=== PATIENT | male | born 1945 | race Caucasian/White ===

== ENCOUNTER 2017-07-09 20:23 | Inpatient (IN) ==
[2017-07-09] MEDS ORDERED: ALBUTEROL/IPRATROPIUM 2.5mg-0.5mg/3ml NEB AEROSOL ONE (20:45)
--- NOTE | 2017-07-09 20:51 | Emergency Department Report ---
SOB HPI - General Chief Complaint: Shortness of Breath/Dyspnea Stated Complaint: blood in urine,difficulty breathing Source: patient, family Mode of arrival: EMS Limitations: no limitations - History of Present Illness PT presents with progressive weakness over the last 2 days. Pt had EMS at his home earlier today as he was not able to get off of the toilet even with family assistance. reports he has had a low grade fever. They have both had dry non productive coughs for about 2 weeks.. EMS reports pt had room air SpO2 in the upper 80s. Pt does not use home O2 but has in the past when he was diagnosed with pneumonia. He denies any respiratory history. Pt denies chest pain, nausea, vomiting, diarrhea, or headache MD Complaint: shortness of breath, cough Severity: moderate Consistency/Duration: constant Known history of: other (agent orange exposure) Associated symptoms: denies other symptoms - Related Data Home Medications Medication Instructions Recorded Confirmed Aspirin [Aspirin EC] 81 mg PO HS #0 01/26/09 07/09/17 Calcium Carbonate 1 tab PO BID #0 01/26/09 07/09/17 Multivitamin [One Daily 1 each PO BID #0 01/26/09 07/09/17 Multivitamin] Acetaminophen [Tylenol] 2 tab PO TID 07/09/17 07/09/17 Albuterol Sulfate [Proair Hfa] 2 puff INH TID PRN 07/09/17 07/09/17 Finasteride [Proscar] 5 mg PO DAILY 07/09/17 07/09/17 Gabapentin [Neurontin] 600 mg PO HS 07/09/17 07/09/17 Metoprolol Tartrate 100 mg PO BID 07/09/17 07/09/17 Omeprazole [Prilosec] 1 cap PO ACBID 07/09/17 07/09/17 Potassium 1 tab PO DAILY 07/09/17 07/09/17 Simvastatin [Zocor] 40 mg PO HS 07/09/17 07/09/17 Triamterene/Hydrochlorothiazid 1 cap PO DAILY 07/09/17 07/09/17 [Triamterene-Hctz 37.5-25 mg Cp] Warfarin Sodium [Coumadin] 5 mg PO QMWF 07/09/17 07/09/17 Warfarin [Coumadin] 2.5 tab PO QTUTHSASU 07/09/17 07/09/17 Allergies Allergy/AdvReac Type Severity Reaction Status Date / Time clindamycin Allergy Severe SWELLING Verified 10/27/14 12:33 sulfamethoxazole Allergy Severe SWELLING Verified 10/27/14 12:33 trimethoprim Allergy Severe SWELLING Verified 10/27/14 12:33 Review of Systems All systems: reviewed and negative except as stated Constitutional: Reports: as per HPI Cardiovascular: Reports: as per HPI Respiratory: Reports: as per HPI Gastrointestinal: Reports: as per HPI Musculoskeletal: Reports: as per HPI Neurological: Reports: as per HPI [facility] Patient Stated Medical History Hypertension Yes Other Cardiology Yes: agent orange exposure -- 30% "disability of heart" Diabetes Mellitus Type 2 Yes Other GI Yes: hernia Osteoarthritis Yes Physical Exam - Limitations Limitations: no limitations - General General appearance: alert, in distress - Normal Exams: Head:: Normocephalic without trauma Neck:: Full range of motion, without adenopathy Cardiovascular:: Regular rate and rhythm (tachy), Pulses 2+ all extremities, capillary refill, <2 seconds all extremities Abdomen:: Bowel sounds positive, soft, non-tender, non-distended Musculoskeletal:: No tenderness, or deformity noted, good range of motion, all extremities Integumentary:: No rashes Neurological:: Patient is alert, and oriented, cranial nerves, motor/sensory/ cerebellar, exams w/o gross deficits, to observation Psychiatric:: Patient exhibits, appropriate attention, emotion and affect - Respiratory Respiratory exam: Present: respiratory distress, accessory muscle use - Expanded Respiratory Exam Location: Left: wheezes, rhonchi, Right: wheezes, rhonchi, Upper: wheezes, rhonchi, Lower: wheezes, rhonchi Course Vital Signs Temperature 99 F 07/09/17 20:26 Pulse Rate 119 H 07/09/17 20:26 Respiratory Rate 28 H 07/09/17 20:26 Blood Pressure 111/65 07/09/17 20:26 Pulse Oximetry 89 L 07/09/17 20:26 Temperature 100.6 F H 07/09/17 21:52 Pulse Rate 109 H 07/09/17 22:30 Respiratory Rate 24 07/09/17 22:30 Blood Pressure 128/56 07/09/17 22:30 Pulse Oximetry 95 07/09/17 22:30 Shortness of Breath/Dyspnea - MDM Narrative Medical decision making narrative: Lab, Xray, and EKG results reviewed. Cultures obtained and antibiotics initiated. Pt and family informed of need for admit. [place] When discussing need to call for approval of admission to [facility] states [place] for [place] and adamantly prefers admission to [facility] the [facility]. Pt presentation and findings discussed with Dr Weiner who agrees to admit. - Differential Diagnosis Likely: acute exacerbation of chronic obstructive airways disease, congestive heart failure, community acquired pneumonia, asthma with exacerbation - Lab Data Attestation: I reviewed the patient's lab results. Result diagrams: 07/09/17 21:17 07/09/17 21:17 Lab Results 07/09/17 07/09/17 07/09/17 Range/Units 21:01 21:17 21:17 WBC 17.8 H (4.5-11.0) T/MM3 RBC 5.09 (4.50-5.90) M/MM3 Hgb 16.1 (13.5-17.5) GM/DL Hct 49.9 (41-53) % MCV 98.0 (80-100) UM3 MCH 31.6 (26-34) UUG MCHC 32.3 (31-37) GM/DL RDW Std Deviation 55.4 H (36.9-50.2) FL Plt Count 175 (130-400) T/MM3 MPV 10.7 (9.4-12.4) UM3 Immature Gran % (Auto) Not performed Neut % (Auto) Not performed Lymph % (Auto) Not performed [place] % (Auto) Not performed Eos % (Auto) Not performed Baso % (Auto) Not performed Neut # (Auto) Not performed Lymph # (Auto) Not performed [place] # (Auto) Not performed Eos # (Auto) Not performed Baso # (Auto) Not performed Abs Immat Gran (auto) Not performed Neutrophils % (Manual) 57.0 (33-66) % Band Neutrophils % 29.0 H (0-6) % Lymphocytes % (Manual) 7.0 L (23-45) % Reactive Lymphs % 2.0 H (0-0) % Monocytes % (Manual) 4.0 (0-9.0) % Metamyelocytes % 1.0 H (0-0) % Neutrophils # (Manual) 10.1 H (1.8-7.7) T/MM3 Band Neutrophils # 5.2 T/MM3 Lymphocytes # (Manual) 1.2 (1-4.8) T/MM3 Abs React Lymphs (Man) 0.4 H (0-0) T/MM3 Monocytes # (Manual) 0.7 (0-0.8) T/MM3 Metamyelocytes # 0.2 T/MM3 Poikilocytosis 1+ Anisocytosis 1+ Tear Drop Cells 1+ RBC Morph Comment Abnormal Turbidity < 20 (0-20) Sodium 145 H (134-144) MEQ/L Potassium 4.0 (3.6-5) MEQ/L Chloride 103 (98-107) MEQ/L Carbon Dioxide 30 (22-30) MEQ/L Anion Gap 12 (5-15) meq/L BUN 36.0 H (9-20) MG/DL Creatinine 1.2 (0.8-1.5) mg/dL GFR Calculation 60 BUN/Creatinine Ratio 30 H (6-26) RATIO Glucose 137 H (75-110) MG/DL Calculated Osmolality 289 H (261-280) MOSM/KG Calcium 9.1 (8.4-10.2) MG/DL Total Bilirubin 1.20 (0.20-1.30) MG/DL Icterus Index < 2 (0-7) AST 63 H (17-59) U/L ALT 27 (1-50) U/L Alkaline Phosphatase 63 (38-126) U/L NT-Pro-B Natriuret Pep 714 H (0-175) pg/mL Total Protein 8.0 (6.3-8.2) g/dL Albumin 4.3 (3.5-5.0) g/dL Globulin 3.7 H (2.4-3.6) G/DL Albumin/Globulin Ratio 1.2 (1.1-2.2) RATIO Plasma Lactate (0.6-2.2) MMOL/L Procalcitonin 6.06 H* NG/ML Specimen Hemolysis 30 H (0-25) //18 Range/Units 22:09 WBC (4.5-11.0) T/MM3 RBC (4.50-5.90) M/MM3 Hgb (13.5-17.5) GM/DL Hct (41-53) % MCV (80-100) UM3 MCH (26-34) UUG MCHC (31-37) GM/DL RDW Std Deviation (36.9-50.2) FL Plt Count (130-400) T/MM3 MPV (9.4-12.4) UM3 Immature Gran % (Auto) Neut % (Auto) Lymph % (Auto) [place] % (Auto) Eos % (Auto) Baso % (Auto) Neut # (Auto) Lymph # (Auto) [place] # (Auto) Eos # (Auto) Baso # (Auto) Abs Immat Gran (auto) Neutrophils % (Manual) (33-66) % Band Neutrophils % (0-6) % Lymphocytes % (Manual) (23-45) % Reactive Lymphs % (0-0) % Monocytes % (Manual) (0-9.0) % Metamyelocytes % (0-0) % Neutrophils # (Manual) (1.8-7.7) T/MM3 Band Neutrophils # T/MM3 Lymphocytes # (Manual) (1-4.8) T/MM3 Abs React Lymphs (Man) (0-0) T/MM3 Monocytes # (Manual) (0-0.8) T/MM3 Metamyelocytes # T/MM3 Poikilocytosis Anisocytosis Tear Drop Cells RBC Morph Comment Turbidity (0-20) Sodium (134-144) MEQ/L Potassium (3.6-5) MEQ/L Chloride (98-107) MEQ/L Carbon Dioxide (22-30) MEQ/L Anion Gap (5-15) meq/L BUN (9-20) MG/DL Creatinine (0.8-1.5) mg/dL GFR Calculation BUN/Creatinine Ratio (6-26) RATIO Glucose (75-110) MG/DL Calculated Osmolality (261-280) MOSM/KG Calcium (8.4-10.2) MG/DL Total Bilirubin (0.20-1.30) MG/DL Icterus Index (0-7) AST (17-59) U/L ALT (1-50) U/L Alkaline Phosphatase (38-126) U/L NT-Pro-B Natriuret Pep (0-175) pg/mL Total Protein (6.3-8.2) g/dL Albumin (3.5-5.0) g/dL Globulin (2.4-3.6) G/DL Albumin/Globulin Ratio (1.1-2.2) RATIO Plasma Lactate 1.6 (0.6-2.2) MMOL/L Procalcitonin NG/ML Specimen Hemolysis (0-25) - Radiology Data Attestation: I reviewed the patient's radiology results. (Right infra hilar pneumonia per Dr Wells) - EKG Data EKG #1 EKG attestation: Yes: I reviewed and interpreted this EKG. EKG shows normal: sinus rhythm Rate: tachycardia Disposition Clinical Impression: Community acquired pneumonia Qualifiers: Laterality: right Lung location: middle lobe of lung Qualified Code(s): J18.1 - Lobar pneumonia, unspecified organism Disposition: 02 To [facility] Acute Care Condition: Improved Prescriptions: No Action Aspirin [Aspirin EC] 81 mg PO HS #0 Calcium Carbonate 1 tab PO BID #0 Multivitamin [One Daily Multivitamin] 1 each PO BID #0 Gabapentin [Neurontin] 600 mg PO HS Albuterol Sulfate [Proair Hfa] 2 puff INH TID PRN PRN Reason: Shortness Of Air/Wheezing Triamterene/Hydrochlorothiazid [Triamterene-Hctz 37.5-25 mg Cp] 1 cap PO DAILY Potassium 1 tab PO DAILY Acetaminophen [Tylenol] 2 tab PO TID Finasteride [Proscar] 5 mg PO DAILY Metoprolol Tartrate 100 mg PO BID Simvastatin [Zocor] 40 mg PO HS Warfarin Sodium [Coumadin] 5 mg PO QMWF Warfarin [Coumadin] 2.5 tab PO QTUTHSASU Omeprazole [Prilosec] 1 cap PO ACBID Referrals: Noel Harding MD [Primary Care Provider] - Time of Disposition: 23:25 - Seen By: midlevel
[2017-07-09] MEDS: SALINE FLUSH 10ml SYRINGE IVF PRN (21:15)
[2017-07-09] MEDS ORDERED: NS 1,000 ML IV ONE (21:57)
[2017-07-09] MEDS: ACETAMINOPHEN 500 MG TABLET PO PRN (22:04)
[2017-07-09] MEDS ORDERED: AZITHROMYCIN IV 500 MG in NS 250ml 250 ML IV ONE (22:08)
[2017-07-09] MEDS ORDERED: CEFTRIAXONE (ER USE ONLY) 1 GM in NS 100 ML IV ONE (22:08)
[2017-07-09] MEDS ORDERED: CEFTRIAXONE 2 GM INJECTION IV SCH (23:42)
[2017-07-10] MEDS: AZITHROMYCIN IV 500 MG in NS 250ml 250 ML IV SCH (00:31)
--- NOTE | 2017-07-10 00:42 | History & Physical Report ---
History of Present Illness Date: 07/10/17 Chief complaint: weakness HPI: This is a 71 y/o male who live at home with his and daughter. He has been coughing for the past 2 weeks and has had increased shortness of breath. Tonight the patient's brathing worsened and he had increased weakness. Initially EMS was asked to assist with getting the patient up (sig obesity). When they were called a second time he is found to be hypoxic with sats in the 80's and febrile 101. He is transported to the ED with CXR demonstrating right hilar infiltrate. He patient had over 20% bands on his differential. The patient has a history of HtN and a previous clot in his left leg. Currently inr is only 1.5. The patient will be admitted to treat CAP. Review of Systems Review of systems: no headache, mild congestion, cough that is constant and non productive. recent (tonight) fever, chills and sweats, no heart palpations, no abdomen pain , no change in bm, no urine sx, no new skin rashes, no focal motor weakness, just generalized weakness. 12 point ROS otherwise negative except for outlined above. Past Medical History Medical History Updates: hypertension, dysliipidemia, BPH, DM2, DVT lefft leg Surgical History: appendectomy, t and a Family History: No Significant Family History - Social History Smoking status: Former smoker Substance use type: does not use Alcohol intake frequency: former alcohol drinker Housing: house Household members: spouse Current occupational status: previously employed Current occupational exposures/hazards: No Does patient use chewing tobacco?: No Current residence: Apartment/Private Home Medications Home Medications Medication Instructions Recorded Confirmed Type Aspirin [Aspirin EC] 81 mg PO HS #0 01/26/09 07/09/17 History Calcium Carbonate 1 tab PO BID #0 01/26/09 07/09/17 History Multivitamin [One Daily 1 each PO BID #0 01/26/09 07/09/17 History Multivitamin] Acetaminophen [Tylenol] 2 tab PO TID 07/09/17 07/09/17 History Albuterol Sulfate [Proair Hfa] 2 puff INH TID PRN 07/09/17 07/09/17 History Finasteride [Proscar] 5 mg PO DAILY 07/09/17 07/09/17 History Gabapentin [Neurontin] 600 mg PO HS 07/09/17 07/09/17 History Metoprolol Tartrate 100 mg PO BID 07/09/17 07/09/17 History Omeprazole [Prilosec] 1 cap PO ACBID 07/09/17 07/09/17 History Potassium 1 tab PO DAILY 07/09/17 07/09/17 History Simvastatin [Zocor] 40 mg PO HS 07/09/17 07/09/17 History Triamterene/Hydrochlorothiazid 1 cap PO DAILY 07/09/17 07/09/17 History [Triamterene-Hctz 37.5-25 mg Cp] Warfarin Sodium [Coumadin] 5 mg PO QMWF 07/09/17 07/09/17 History Warfarin [Coumadin] 2.5 tab PO QTUTHSASU 07/09/17 07/09/17 History Allergies Allergy/AdvReac Type Severity Reaction Status Date / Time clindamycin Allergy Severe SWELLING Verified 10/27/14 12:33 sulfamethoxazole Allergy Severe SWELLING Verified 10/27/14 12:33 trimethoprim Allergy Severe SWELLING Verified 10/27/14 12:33 Exam Vital Signs: Temperature 98.6 F 07/09/17 23:59 Pulse Rate 111 H 07/09/17 23:59 Respiratory Rate 18 07/09/17 23:59 Blood Pressure 131/64 07/09/17 23:59 Pulse Oximetry 94 07/09/17 23:59 Telemetry Rhythm: Sinus Rhythm Height/Weight/BMI: Height 1.7 m Weight 149.4 kg Body Mass Index 51.5 - Constitutional Present: mild distress, well developed, morbidly obese, cooperative - Routine HEENT Exam Head: Present: normocephalic, atraumatic Eye: Present: EOMI, PERRL, conjunctivae pink ENT: Present: mucous membranes moist - Routine Neck Exam Present: supple, full ROM - Routine Respiratory Exam Comments: very diminished breath sounds (obesity). no wheeze, no rhonchi - Routine Cardiovascular Exam Present: RRR, no murmur - Routine Abdominal Exam Present: soft Comments: morbidly obese, no obvious tender per nursing palpation - Routine Skin Exam Present: dry - Routine Psychiatric Exam Present: normal affect, normal thought process Results - Labs CBC & Chem 7: 07/10/17 02:49 07/10/17 04:57 Labs: labs reviewed and pertinent findings discussed below CXR with right perihilar infiltrate. Assessment and Plan (1) Community acquired pneumonia Current visit: Yes Status: Acute (2) Sepsis Current visit: Yes Status: Acute Assessment and Plan: 1. community acquired pneumonia acute POA: rocephin, zithromax, cx resp panel , adjust as indicated 2. hypoxia acute POA; not hypoxic resp failure. 2/ # 1. titrate for sats 91%. 3. sepsis acute POA: not severe sepsis. fluids anyway, antibiotics, repeat markers in the am 4. DM2 chronic POA: correctional plan 5. morbid obesity BMI 52 chronic POA: to be aware of , plays a role in his weakness 6. HTN chronic POA: on metoprolol, maxide. hold both acutely with significant infection ongoing 7. subtherapeutic INR acute POA: anticoagulated for DVT. will start bridging 8. DVT ppx, lovenox, SCD 07/10/2017-2:20 p.m. Please see dictated H&P by STEPHANIE Garza with my additions. DVT Prophylaxis: SCD's, Lovenox, Coumadin GI Prophylaxis: Protonix Resuscitation Status: Full Code - Time spent with patient Time with patient PN: 35 minutes - Physician Narrative Physician: Karlie Brink MD Narrative: Date: 07/10/17 Time: 0039 Hospital Course Summary Disclaimer: The visit summary below is not to be considered part of the above Progress Note.
[2017-07-10] MEDS: ACETAMINOPHEN 500 MG TABLET PO PRN (04:52)
[2017-07-10] MEDS ORDERED: ALBUTEROL 2.5mg/3ml (0.083%) NEB AEROSOL PRN (07:58)
--- NOTE | 2017-07-10 08:06 | XRay Report ---
Indication: cough, SOA PROCEDURE: XR chest 1V: Encounter: Initial Comparison: April 22, 2015 Findings: Increased opacity in the medial right lung base could be within the right middle and right lower lobes. Mild interstitial prominence. No pleural effusion or pneumothorax. Cardiac silhouette is mildly enlarged. Medial contours and pulmonary vascularity are stable. Impression: Right infrahilar opacity could represent early or mild pneumonia. .
--- NOTE | 2017-07-10 08:44 | History & Physical Report ---
History of Present Illness Date: 07/10/17 HPI: Mr Parker is a 71 yr old male who was brought to the ER last evening by EMS for evaluation of dyspnea. It is reported that patient had been evaluated by EMS earlier in the day as he needed assistance getting up. However, they were called again to his regimen where he was found to be hypoxic with room air saturations in the 80s, and fever of 101. He was then brought to the emergency room for acute evaluation. In the emergency room he was found to have leukocytosis with a white count 17.8, 29% bandemia. Venous lactate 1.6, elevated pro calcitonin 6.06. Chest x-ray did reveal right sided pneumonia, and patient did continue to be hypoxic requiring 4-5 liters by nasal cannula to maintain adequate saturations. Temperature max of 100.7. He initially was tachycardic in the 120s, and blood pressure remained stable. Patient does meet sepsis criteria, given multiple positive sirs criteria plus pneumonia. Even his continued hypoxia. The hospitalist services were contacted and accepted. Patient for inpatient admission for further evaluation and treatment. Review of Systems All systems PM: 10-point ROS was reviewed, no additional remarkable complaints except - Constitutional Constitutional: Present: chills - Respiratory Respiratory: Present: cough, dyspnea, dyspnea on exertion Past Medical History Medical History Updates: Hypertension. Dyslipidemia. DM. BPH. 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 History of pulmonary emboli-. History of DVT-1994. Chronic anticoagulation on Coumadin since the . History of seizures ( last seizure in the ) Surgical History: Tonsillectomy. Appendectomy. Vasectomy reversal. Cardiac cathetergreater than 10 years ago. Bone spur removed from nose. Colonoscopy greater than 10 years ago, was performed at the [facility]. Excision of facial melanoma. Excision of sebaceous cyst from back Family History: FatherAlzheimer's, CVA (). Mother Questionable dementia Brotherdeceased due to complications of pneumonia Family History: No Significant Family History - Social History Smoking status: Former smoker (quit 1996) Substance use type: does not use Alcohol intake frequency: does not drink Housing: house Household members: spouse Current occupational status: retired Does patient use chewing tobacco?: No Current residence: Apartment/Private Home Social history: PCP Dr Noel Harding- [facility] Medications Home Medications Medication Instructions Recorded Confirmed Type Aspirin [Aspirin EC] 81 mg PO HS #0 01/26/09 07/09/17 History Calcium Carbonate 1 tab PO BID #0 01/26/09 07/09/17 History Multivitamin [One Daily 1 each PO BID #0 01/26/09 07/09/17 History Multivitamin] Acetaminophen [Tylenol] 2 tab PO TID 07/09/17 07/09/17 History Albuterol Sulfate [Proair Hfa] 2 puff INH TID PRN 07/09/17 07/09/17 History Finasteride [Proscar] 5 mg PO DAILY 07/09/17 07/09/17 History Gabapentin [Neurontin] 600 mg PO HS 07/09/17 07/09/17 History Metoprolol Tartrate 100 mg PO BID 07/09/17 07/09/17 History Omeprazole [Prilosec] 1 cap PO ACBID 07/09/17 07/09/17 History Potassium 1 tab PO DAILY 07/09/17 07/09/17 History Simvastatin [Zocor] 40 mg PO HS 07/09/17 07/09/17 History Triamterene/Hydrochlorothiazid 1 cap PO DAILY 07/09/17 07/09/17 History [Triamterene-Hctz 37.5-25 mg Cp] Warfarin Sodium [Coumadin] 5 mg PO QMWF 07/09/17 07/09/17 History Warfarin [Coumadin] 2.5 tab PO [id number] 07/09/17 07/09/17 History Allergies Allergy/AdvReac Type Severity Reaction Status Date / Time clindamycin Allergy Severe SWELLING Verified 10/27/14 12:33 sulfamethoxazole Allergy Severe SWELLING Verified 10/27/14 12:33 trimethoprim Allergy Severe SWELLING Verified 10/27/14 12:33 Exam Vital Signs: Temperature 99.3 F 07/10/17 08:01 Pulse Rate 98 07/10/17 08:01 Respiratory Rate 24 07/10/17 08:01 Blood Pressure 139/59 07/10/17 08:01 Pulse Oximetry 93 07/10/17 08:01 Height/Weight/BMI: Height 1.7 m Weight 149.8 kg Body Mass Index 51.5 - Constitutional Present: no acute distress, well nourished, well developed - Routine HEENT Exam Eye: Present: EOMI ENT: Present: mucous membranes moist, dentition normal - Routine Respiratory Exam Present: wheezes Comments: Course breath sounds on the right - Routine Cardiovascular Exam Present: RRR, S1, S2. Absent: murmur - Routine Abdominal Exam Present: soft, normoactive bowel sounds, non distended. Absent: tenderness - Routine Extremities Exam Present: no edema, non tender - Routine Skin Exam Present: intact, dry, warm - Routine Neurological Exam Present: alert, oriented X3, CN II-XII intact - Routine Psychiatric Exam Present: normal affect, normal thought process, cooperative Results - Labs CBC & Chem 7: 07/10/17 02:49 07/10/17 04:57 Assessment and Plan (1) Sepsis Current visit: Yes Status: Acute (2) Community acquired pneumonia Current visit: Yes Status: Acute Assessment and Plan: Impression Sepsis-Leukocytosis, bandemia, fever, tachypnea, pneumonia Community acquired pneumonia Respiratory failure with hypoxia requiring 4-5 liters Parainfluenza Hypernatremia- POA Subtherapeutic INR-chronic anticoagulation on warfarin Type II diabetes Hypertension morbid obesity- BMI 51 Plan Admit inpatient status under the care of Dr. Brink for sepsis and community acquired pneumonia Continue with IV Rocephin and azithromycin antimicrobial coverage. Sputum and blood Cultures pending Continue with DuoNeb 4 times a day and Pulmicort twice a day Will add Mucinex twice a day Obtain an INR now, patient had subtherapeutic INR on admission, 1.5. 2. Will bridge with Lovenox until therapeutic. Pharmacy consult placed Reported history of diabetes, however, does not appear the patient is on any current medication. We will obtain a hemoglobin A1c and monitor Accu-Cheks. 1/2 NS at 100ml/hr for gentle hydration given hypernatremia Respiratory precautions given parainfluenza SCDs to bilateral lower extremity for DVT prophylaxis Repeat CBC and BMP tomorrow morning to follow blood counts, renal function and electrolytes Patient does wish to be a full code and this order is written Will discuss further orders and plan of care with attending, Dr. Brink At time of discharge medical care will return to primary care provider, Dr Harding at [facility] 07/10/2017-2:15 PM-I examined the patient independently. I reviewed this chart, the patient history, and the PRODUCT MARKETER's/PA's documented findings as above. We discussed and formulated the assessment and plan as above with the additions below.-Dr. Brink The patient was seen this afternoon in his room. He states he feels about the same as yesterday. He had been having rhinorrhea and a cough and became more short of breath yesterday. Viral respiratory panel is positive for parainfluenza. Chest x-ray is concerning for a right infrahilar infiltrate. His cough is mildly productive but he has not been able to cough up phlegm. He is on albuterol "for my lungs" but does not think he has COPD or emphysema. He denies history of asthma. He is a former smoker but quit about 20 years ago. He was admitted last evening with sepsis, pneumonia and acute hypoxic respiratory failure. He was started on azithromycin and Rocephin. He was initially requiring 4 L of oxygen dependence now down to 2 L of oxygen. He does not have much appetite. He is on cautious IV fluids. He denies history of sleep apnea but does snore at night. He denies history of heart disease or congestive heart failure. On exam he is alert and oriented. He is morbidly obese. HEENT reveals oropharynx is moist. Neck is supple. Chest reveals some minimal rhonchi which is scattered. He has some mild end expiratory wheezes. Cardiovascular reveals a regular rate and rhythm. Abdomen is soft, obese and nontender. Extremities are free of edema. Lab is significant for white count of 23,000 which is up from 17.3 yesterday. Lactate was 1.6 and on repeat is 1.3. Hemoglobin A1c is 6.1. Impression Acute hypoxic respiratory failure Community acquired pneumonia Parainfluenza Possible COPD with COPD exacerbation Chronic anticoagulation with Coumadin for history of PE and DVT. Currently subtherapeutic INR. Plan Change to albuterol and ipratropium breathing treatments 4 times a day and when necessary. Add prednisone 40 mg daily. Continue azithromycin and Rocephin for pneumonia. Recheck chest x-ray tomorrow. CBC with manual differential tomorrow. Pro-calcitonin tomorrow. Patient is on Lovenox for bridging. Pharmacy was consulted for Coumadin management. DC IV fluids when taking by mouth well. Monitor closely for fluid overload. Increase activity as tolerated. Up in a chair 3 times a day. Consult PT OT. Patient states uses a walker or cane at home. DVT Prophylaxis: SCD's, Lovenox Resuscitation Status: Full Code - Time spent with patient Time with patient PN: 50 minutes - Physician Narrative Narrative: Date: 07/10/17 Time: 0833 Hospital Course Summary Disclaimer: The visit summary below is not to be considered part of the above Progress Note. Hospital Course: Impression Sepsis-Leukocytosis, bandemia, fever, tachypnea, pneumonia Community acquired pneumonia Respiratory failure with hypoxia requiring 4-5 liters Parainfluenza Hypernatremia- POA Subtherapeutic INR-chronic anticoagulation on warfarin Type II diabetes Hypertension morbid obesity- BMI 51 Plan Admit inpatient status under the care of Dr. rBink for sepsis and community acquired pneumonia Continue with IV Rocephin and azithromycin antimicrobial coverage. Sputum and blood Cultures pending Continue with DuoNeb 4 times a day and Pulmicort twice a day Will add Mucinex twice a day Obtain an INR now, patient had subtherapeutic INR on admission, 1.5. 2. Will bridge with Lovenox until therapeutic. Pharmacy consult placed Reported history of diabetes, however, does not appear the patient is on any current medication. We will obtain a hemoglobin A1c and monitor Accu-Cheks. 1/2 NS at 100ml/hr for gentle hydration given hypernatremia Respiratory precautions given parainfluenza SCDs to bilateral lower extremity for DVT prophylaxis Repeat CBC and BMP tomorrow morning to follow blood counts, renal function and electrolytes Will discuss further orders and plan of care with attending, Dr. Brink At time of discharge medical care will return to primary care provider, Dr Harding at [facility]
[2017-07-10] MEDS ORDERED: WARFARIN - PHARMACY CONSULT MC ONE (08:49)
[2017-07-10] MEDS: ENOXAPARIN 150 MG/ML INJECTION SQ SCH ×2 (08:57→20:50)
[2017-07-10] MEDS: ACETAMINOPHEN 325 MG TABLET PO SCH ×3 (09:21→20:50)
--- NOTE | 2017-07-10 10:08 | Pharmacy Consult ---
Pharmacy Consult-Warfarin - Laboratory Information 07/10/17 07/10/17 02:49 09:01 Hgb 15.4 Hct 46.6 INR 1.41 H - Consult Information COUMADIN CONSULT (Initial): DAY 1 Dx: Left Leg DVT TRINY is a 71 yr old male who was brought to the ER last evening by EMS for evaluation of dyspnea. It is reported that patient had been evaluated by EMS earlier in the day as he needed assistance getting up. Medical History Updates: Hypertension. Dyslipidemia. DM. BPH. History of pulmonary emboli-. History of DVT-1994. Chronic anticoagulation on Coumadin since the . The home dose of Warfarin is 5 mg MoWeFr and 2.5 SuTuThSa. Date INR Dose 07/11/17 1.52 5 mg today I will order Warfarin 5 mg p.o. today at 1200 as the patient's INR is 1.52. The Pharmacy will continue to monitor the INR's and adjust the dosage of the Coumadin accordingly. Thank you for the Warfarin Dosing Protocol, Payam Pérez , Pharmacist.
[2017-07-10] MEDS ORDERED: ALBUTEROL 2.5mg/3ml (0.083%) NEB AEROSOL SCH (11:00)
[2017-07-10] MEDS: TRIAMTERENE/HCTZ 37.5 MG-25 MG TABLET PO SCH (11:00)
[2017-07-10] MEDS: GUAIFENESIN/D-METHORPHAN 600mg/30mg TABLET PO SCH ×2 (11:01→20:50)
[2017-07-10] MEDS: FINASTERIDE 5 MG TABLET PO SCH (11:01)
[2017-07-10] MEDS: BUDESONIDE INH.SOLN 0.5mg/2ml NEB AEROSOL SCH ×2 (11:28→19:56)
[2017-07-10] MEDS ORDERED: WARFARIN 5 MG TABLET PO SCH (12:00)
[2017-07-10] MEDS: MULTI-VITAMIN PLAIN TABLET PO SCH (12:03)
[2017-07-10] MEDS: 1/2 NS 1,000 ML IV SCH ×2 (12:04→23:20)
[2017-07-10] MEDS ORDERED: ALBUTEROL/IPRATROPIUM 2.5mg-0.5mg/3ml NEB AEROSOL PRN (14:08)
[2017-07-10] MEDS: ALBUTEROL/IPRATROPIUM 2.5mg-0.5mg/3ml NEB AEROSOL SCH ×2 (15:13→19:55)
[2017-07-10 15:56] VITALS: BMI 51.7
[2017-07-10] MEDS: OMEPRAZOLE 20 MG CAPSULE PO SCH (16:59)
[2017-07-10] MEDS ORDERED: BUDESONIDE INH.SOLN 0.5mg/2ml NEB AEROSOL SCH (19:00)
[2017-07-10] MEDS: CEFTRIAXONE 1 G in NS 100 ML IV SCH (20:43)
[2017-07-10] MEDS: ASPIRIN *EC* 81 MG TABLET PO SCH (20:51)
[2017-07-10] MEDS: SIMVASTATIN 40 MG TABLET PO SCH (20:51)
[2017-07-10] MEDS: GABAPENTIN 600 MG TABLET PO SCH (20:51)
[2017-07-11] MEDS: SALINE FLUSH 10ml SYRINGE IVF PRN (02:08)
[2017-07-11] MEDS: AZITHROMYCIN IV 500 MG in NS 250ml 250 ML IV SCH (02:08)
[2017-07-11] MEDS: OMEPRAZOLE 20 MG CAPSULE PO SCH ×2 (06:27→16:58)
[2017-07-11] MEDS: 1/2 NS 1,000 ML IV SCH (06:43)
[2017-07-11] MEDS: ALBUTEROL/IPRATROPIUM 2.5mg-0.5mg/3ml NEB AEROSOL SCH ×4 (07:42→19:31)
[2017-07-11] MEDS: BUDESONIDE INH.SOLN 0.5mg/2ml NEB AEROSOL SCH ×2 (07:42→19:30)
--- NOTE | 2017-07-11 08:35 | XRay Report ---
INDICATION: pneumonia PROCEDURE: CHEST 2-VIEWS UPRIGHT (PA & LAT) Encounter: Initial COMPARISON: July 09, 2017 FINDINGS: Exam is somewhat limited by portable technique and patient body habitus. Retrocardiac airspace disease is seen on the lateral view. No new or worsening consolidation. No pneumothorax or definite pleural effusion Heart size and mediastinal contours are stable. Pulmonary vascularity is normal. Impression: Retrocardiac area pneumonia. .
--- NOTE | 2017-07-11 08:37 | Pharmacy Consult ---
Pharmacy Consult-Warfarin - Laboratory Information 07/10/17 07/10/17 07/11/17 02:49 09:01 04:08 Hgb 15.4 16.0 Hct 46.6 49.4 INR 1.41 H 07/11/17 05:14 Hgb Hct INR 1.70 H - Consult Information 71 y.o. Male with history of pulmonary emboli-. History of DVT-1994. Chronic anticoagulation on Coumadin since the . Home warfarin dose= 5 mg po Monday, Monday, Monday and 2.5 mg Monday, Monday, and Monday. date INR dose 07/10 1.52 5 mg 07/11 1.7 plan: 5 mg INR is subtherapeutic but climbing. Patient has order for Lovenox 150 mg sq BID to bridge anticoagulation while INR is subtherapeutic. Will give Warfarin 5 mg po today. Potential drug-drug interaction exists between Warfarin and Azithromycin and Ceftriaxone both medications may increase INR and the risk of bleeding. Pharmacy will monitor and adjust as needed. Thank you, Jeanie Leger [facility]
[2017-07-11] MEDS: GUAIFENESIN/D-METHORPHAN 600mg/30mg TABLET PO SCH ×2 (08:58→21:37)
[2017-07-11] MEDS: FINASTERIDE 5 MG TABLET PO SCH (08:58)
[2017-07-11] MEDS: ACETAMINOPHEN 325 MG TABLET PO SCH ×3 (08:58→21:35)
[2017-07-11] MEDS: TRIAMTERENE/HCTZ 37.5 MG-25 MG TABLET PO SCH (08:58)
[2017-07-11] MEDS: ENOXAPARIN 150 MG/ML INJECTION SQ SCH ×2 (08:59→21:36)
[2017-07-11] MEDS: MULTI-VITAMIN PLAIN TABLET PO SCH (08:59)
[2017-07-11] MEDS ORDERED: WARFARIN 5 MG TABLET PO SCH (12:00)
[2017-07-11] MEDS ORDERED: PredniSONE 20 MG TABLET PO SCH ×2 (14:06→19:03)
--- NOTE | 2017-07-11 16:32 | Progress Note ---
- Date 07/11/17 Subjective: Felipe is seen this afternoon in follow-up. He is resting in bed comfortably and is able to wean off oxygen. Currently on room air. He states that he could does continue to have a persistent cough. However, overall his breathing felt easier. His only complaint of pain as a mild headache that he attributes to ongoing coughing. States appetite has improved today. Denies difficulty with urination. Has been up in the chair for meals Objective Vital signs: Temperature 96.1 F L 07/11/17 15:54 Pulse Rate 93 07/11/17 15:54 Respiratory Rate 20 07/11/17 15:54 Blood Pressure 134/101 H 07/11/17 15:54 Pulse Oximetry 92 07/11/17 15:54 Height/Weight/BMI: Height 1.7 m Weight 150.4 kg Body Mass Index 51.7 - Constitutional Present: no acute distress, well nourished, well developed - Routine HEENT Exam Eye: Present: EOMI ENT: Present: mucous membranes moist, dentition normal - Routine Respiratory Exam Present: diminished air movement (bilateral bases). Absent: wheezes - Routine Cardiovascular Exam Present: RRR, S1, S2. Absent: murmur - Routine Abdominal Exam Present: soft, normoactive bowel sounds, non distended. Absent: tenderness - Routine Extremities Exam Present: normal capillary refill - Routine Back/Spine/Pelvis Exam Back/Spine: Present: full ROM - Routine Skin Exam Present: intact, dry, warm - Routine Neurological Exam Present: alert, oriented X3, CN II-XII intact - Routine Lymphatic Exam Lymphatic: Absent: adenopathy - Routine Psychiatric Exam Present: normal affect, cooperative Results - Labs CBC & Chem 7: 07/11/17 04:08 07/11/17 04:08 Microbiology Results: Microbiology 07/10/17 04:45 Urine Legionella Urinary Antigen - Final Assessment and Plan (1) Community acquired pneumonia Current visit: Yes Status: Acute (2) Sepsis Current visit: Yes Status: Acute Assessment and Plan: Impression Sepsis-Leukocytosis, bandemia, fever, tachypnea, pneumonia Community acquired pneumonia Respiratory failure with hypoxia requiring 4-5 liters COPD exacerbation Parainfluenza Hypernatremia- POA Subtherapeutic INR-chronic anticoagulation on warfarin Type II diabetes- Hgb A1C- 6.1% Hypertension morbid obesity- BMI 51 Plan Working on weaning down oxygen Continue with Rocephin and azithromycin for pulmonary coverage. Blood cultures negative after 1 day. Continue with scheduled DuoNeb breathing treatment Prednisone for pulmonary inflammation. Will place consult to PT and OT for tomorrow to evaluate patient Accu-Cheks remained normal, will discontinue scheduled Accu-Cheks to when necessary Lovenox subcutaneous daily for DVT prophylaxis- subtherapeutic INR Will recheck CBC and BMP tomorrow morning. Follow leukocytosis, electrolytes and renal function 07/11/2017-7 PM -I examined the patient independently. I reviewed this chart, the patient history, and the ADJUNCT INSTRUCTOR's/PA's documented findings as above. We discussed and formulated the assessment and plan as above with the additions below.-Dr. Brink The patient was seen this evening in his room. He is sitting up in a recliner on room air. He states he is starting to feel better. He continues to have a cough but it is nonproductive. He is ambulating with his walker. He was seen by PT yesterday and they recommended IRU versus home with home health. He states he is eating and drinking well. On exam he is alert and in no acute distress. Chest is clear to auscultation. Cardiovascular reveals a regular rate and rhythm. Extremities are free of edema. Chest x-ray today shows retrocardiac pneumonia Impression and plan Community acquired pneumonia-improving on Rocephin and azithromycin. Bandemia and leukocytosis is improving. COPD exacerbation-continue steroids and breathing treatments. Decrease prednisone tomorrow to 30 mg daily. Overnight oximetry on room air tonight. Possible discharge soon if he continues to do well. Await reevaluation tomorrow by PT and OT to see if the patient would benefit from either home health or inpatient rehabilitation. - Physician Narrative Narrative: Date: 07/11/17 Time: 1624 Hospital Course Summary Disclaimer: The visit summary below is not to be considered part of the above Progress Note. Hospital Course: Impression Sepsis-Leukocytosis, bandemia, fever, tachypnea, pneumonia Community acquired pneumonia Respiratory failure with hypoxia requiring 4-5 liters Parainfluenza Hypernatremia- POA Subtherapeutic INR-chronic anticoagulation on warfarin Type II diabetes Hypertension morbid obesity- BMI 51 07/10/17 Admit inpatient status under the care of Dr. Brink for sepsis and community acquired pneumonia Continue with IV Rocephin and azithromycin antimicrobial coverage. Sputum and blood Cultures pending Continue with DuoNeb 4 times a day and Pulmicort twice a day Will add Mucinex twice a day Obtain an INR now, patient had subtherapeutic INR on admission, 1.5. 2. Will bridge with Lovenox until therapeutic. Pharmacy consult placed Reported history of diabetes, however, does not appear the patient is on any current medication. We will obtain a hemoglobin A1c and monitor Accu-Cheks. 1/2 NS at 100ml/hr for gentle hydration given hypernatremia Respiratory precautions given parainfluenza SCDs to bilateral lower extremity for DVT prophylaxis Repeat CBC and BMP tomorrow morning to follow blood counts, renal function and electrolytes Will discuss further orders and plan of care with attending, Dr. Brink At time of discharge medical care will return to primary care provider, Dr Harding at [facility] 07/11/17 Working on weaning down oxygen Continue with Rocephin and azithromycin for pulmonary coverage. Blood cultures negative after 1 day. Continue with scheduled DuoNeb breathing treatment Prednisone for pulmonary inflammation. Will place consult to PT and OT for tomorrow to evaluate patient Accu-Cheks remained normal, will discontinue scheduled Accu-Cheks to when necessary Lovenox subcutaneous daily for DVT prophylaxis- subtherapeutic INR Will recheck CBC and BMP tomorrow morning. Follow leukocytosis, electrolytes and renal function
[2017-07-11] MEDS: CEFTRIAXONE 1 G in NS 100 ML IV SCH (21:14)
[2017-07-11] MEDS: ASPIRIN *EC* 81 MG TABLET PO SCH (21:36)
[2017-07-11] MEDS: GABAPENTIN 600 MG TABLET PO SCH (21:36)
[2017-07-11] MEDS: SIMVASTATIN 40 MG TABLET PO SCH (21:37)
[2017-07-12] MEDS: AZITHROMYCIN IV 500 MG in NS 250ml 250 ML IV SCH (00:09)
[2017-07-12] MEDS: OMEPRAZOLE 20 MG CAPSULE PO SCH ×2 (06:48→16:54)
[2017-07-12] MEDS: BUDESONIDE INH.SOLN 0.5mg/2ml NEB AEROSOL SCH (07:38)
[2017-07-12] MEDS: ALBUTEROL/IPRATROPIUM 2.5mg-0.5mg/3ml NEB AEROSOL SCH ×3 (07:38→15:20)
[2017-07-12] MEDS: GUAIFENESIN/D-METHORPHAN 600mg/30mg TABLET PO SCH (09:06)
[2017-07-12] MEDS: TRIAMTERENE/HCTZ 37.5 MG-25 MG TABLET PO SCH (09:06)
[2017-07-12] MEDS: FINASTERIDE 5 MG TABLET PO SCH (09:06)
[2017-07-12] MEDS: ENOXAPARIN 150 MG/ML INJECTION SQ SCH (09:07)
[2017-07-12] MEDS: MULTI-VITAMIN PLAIN TABLET PO SCH (09:07)
[2017-07-12] MEDS: ACETAMINOPHEN 325 MG TABLET PO SCH ×2 (09:07→14:14)
--- NOTE | 2017-07-12 09:48 | Pharmacy Consult ---
Pharmacy Consult-Warfarin - Laboratory Information 07/10/17 07/10/17 07/11/17 02:49 09:01 04:08 Hgb 15.4 16.0 Hct 46.6 49.4 INR 1.41 H Albumin 07/11/17 07/12/17 07/12/17 05:14 04:59 04:59 Hgb 15.2 Hct 45.9 INR 1.70 H Albumin 3.7 07/12/17 09:07 Hgb Hct INR 2.20 H Albumin - Consult Information COUMADIN CONSULT: 71 yr old male patient 5'7" 330 lbs admitted for pneumonia. Patient is on warfarin 5 mg MoWeFr and 2.5 mg TuThSaSu home med dose He is on it as prophylaxis for DVT as he has a history of DVT/PE. His INR is subtherapeutic at admit. He has been placed on Enoxaparin 150 mg SQ BID. He is currently on IV antibiotics - Ceftriaxone and Azithromycin. Both have the potential to increase the INR. DATE INR DOSE 07/10/17 1.52 5 MG 07/11/17 1.70 5 MG 07/12/17 2.20 3 MG will be given today. INR is now in the therapeutic range of 2-3 Enoxaparin will be discontinued because the INR is now in the therapeutic range. Pharmacy will continue to monitor and adjust the warfarin dose. Thank you. Kaya Win, PharmD
[2017-07-12] MEDS ORDERED: WARFARIN 3 MG TABLET PO SCH (12:00)
--- NOTE | 2017-07-12 14:50 | Progress Note ---
- Date 07/12/17 Subjective: Mr Parker is seen in follow-up today. He is up in the chair comfortably, breathing on room air and states that he is feeling great. He requests to be discharged home. It is noted that he did require oxygen overnight. He denies having chest pain, abdominal pain or other concerns. His appetite has been good. Objective Vital signs: Temperature 96.4 F L 07/12/17 07:27 Pulse Rate 83 07/12/17 11:07 Respiratory Rate 18 07/12/17 11:07 Blood Pressure 153/67 H 07/12/17 07:27 Pulse Oximetry 94 07/12/17 11:07 Height/Weight/BMI: Height 1.7 m Weight 149.7 kg Body Mass Index 51.7 - Constitutional Present: no acute distress, well nourished, well developed - Routine HEENT Exam Eye: Present: EOMI ENT: Present: mucous membranes moist, dentition normal - Routine Respiratory Exam Present: diminished air movement. Absent: wheezes - Routine Cardiovascular Exam Present: RRR, S1, S2. Absent: murmur - Routine Abdominal Exam Present: soft, normoactive bowel sounds, non distended. Absent: tenderness - Routine Extremities Exam Present: full ROM - Routine Back/Spine/Pelvis Exam Back/Spine: Present: full ROM - Routine Skin Exam Present: intact, dry, warm - Routine Neurological Exam Present: alert, oriented X3, CN II-XII intact, moving all extremities - Routine Lymphatic Exam Lymphatic: Absent: adenopathy - Routine Psychiatric Exam Present: normal affect, cooperative Results - Labs CBC & Chem 7: 07/12/17 04:59 07/12/17 04:59 Microbiology Results: Microbiology 07/10/17 04:45 Urine Legionella Urinary Antigen - Final Assessment and Plan (1) Community acquired pneumonia Current visit: Yes Status: Acute (2) Sepsis Current visit: Yes Status: Acute Assessment and Plan: Impression Sepsis-Leukocytosis, bandemia, fever, tachypnea, pneumonia Community acquired pneumonia Respiratory failure with hypoxia requiring 4-5 liters COPD exacerbation Parainfluenza Hypernatremia- POA Subtherapeutic INR-chronic anticoagulation on warfarin Type II diabetes- Hgb A1C- 6.1% Hypertension morbid obesity- BMI 51 Plan Weaned down to room air while at rest. Will obtain ambulatory oximetry. May also need overnight oximetry. This is discussed with case management. He continues on Rocephin and azithromycin for pulmonary coverage. Leukocytosis has resolved PT and OT for tomorrow to evaluate patient Hopeful discharge in the near future - Physician Narrative Narrative: Date: 07/12/17 Time: 1450 Hospital Course Summary Disclaimer: The visit summary below is not to be considered part of the above Progress Note. Hospital Course: Impression Sepsis-Leukocytosis, bandemia, fever, tachypnea, pneumonia Community acquired pneumonia Respiratory failure with hypoxia requiring 4-5 liters Parainfluenza Hypernatremia- POA Subtherapeutic INR-chronic anticoagulation on warfarin Type II diabetes Hypertension morbid obesity- BMI 51 07/10/17 Admit inpatient status under the care of Dr. Brink for sepsis and community acquired pneumonia Continue with IV Rocephin and azithromycin antimicrobial coverage. Sputum and blood Cultures pending Continue with DuoNeb 4 times a day and Pulmicort twice a day Will add Mucinex twice a day Obtain an INR now, patient had subtherapeutic INR on admission, 1.5. 2. Will bridge with Lovenox until therapeutic. Pharmacy consult placed Reported history of diabetes, however, does not appear the patient is on any current medication. We will obtain a hemoglobin A1c and monitor Accu-Cheks. 1/2 NS at 100ml/hr for gentle hydration given hypernatremia Respiratory precautions given parainfluenza SCDs to bilateral lower extremity for DVT prophylaxis Repeat CBC and BMP tomorrow morning to follow blood counts, renal function and electrolytes Will discuss further orders and plan of care with attending, Dr. Brink At time of discharge medical care will return to primary care provider, Dr Harding at [facility] 07/11/17 Working on weaning down oxygen Continue with Rocephin and azithromycin for pulmonary coverage. Blood cultures negative after 1 day. Continue with scheduled DuoNeb breathing treatment Prednisone for pulmonary inflammation. Will place consult to PT and OT for tomorrow to evaluate patient Accu-Cheks remained normal, will discontinue scheduled Accu-Cheks to when necessary Lovenox subcutaneous daily for DVT prophylaxis- subtherapeutic INR Will recheck CBC and BMP tomorrow morning. Follow leukocytosis, electrolytes and renal function 07/12 Weaned down to room air while at rest. Will obtain ambulatory oximetry. May also need overnight oximetry. This is discussed with case management. He continues on Rocephin and azithromycin for pulmonary coverage. Leukocytosis has resolved PT and OT for tomorrow to evaluate patient Hopeful discharge in the near future
[2017-07-12 15:08] VITALS: BP 119/65; PULSE 86; TEMP 96.5
[2017-07-12 15:25] VITALS: RESP 18; O2SAT 93
[2017-07-12] MEDS: SALINE FLUSH 10ml SYRINGE IVF PRN (15:36)
--- NOTE | 2017-07-12 15:57 | Discharge Summary ---
Discharge Information Date of admission: 07/09/17 23:09 Anticipated date of discharge: 07/12/17 Attending Physician: Karlie Brink MD Primary care physician: Noel Harding MD Consults: None - Discharge Diagnosis (1) Community acquired pneumonia Status: Acute (2) Sepsis Status: Acute Sepsis-Leukocytosis, bandemia, fever, tachypnea, pneumonia Community acquired pneumonia Acute hypoxic respiratory failure -resolved Nocturnal hypoxemia-requiring 2 L of oxygen at night COPD exacerbation Parainfluenza Hypernatremia- POA Subtherapeutic INR-chronic anticoagulation on warfarin Type II diabetes- Hgb A1C- 6.1% Hypertension morbid obesity- BMI 51 - Procedures Procedures: None - Laboratory Labs: 07/12/17 04:59 07/12/17 04:59 - Microbiology Microbiology 07/10/17 04:45 Urine Legionella Urinary Antigen - Final - Radiology Radiology: 07/09/17-chest x-ray- Impression: Right infrahilar opacity could represent early or mild pneumonia. 07/11/17-chest [id number]: Retrocardiac area pneumonia. - Pathology None History of Present Illness HPI: This is a 71 y/o male who live at home with his and daughter. He has been coughing for the past 2 weeks and has had increased shortness of breath. Tonight the patient's brathing worsened and he had increased weakness. Initially EMS was asked to assist with getting the patient up (sig obesity). When they were called a second time he is found to be hypoxic with sats in the 80's and febrile 101. He is transported to the ED with CXR demonstrating right hilar infiltrate. He patient had over 20% bands on his differential. The patient has a history of HtN and a previous clot in his left leg. Currently inr is only 1.5. The patient will be admitted to treat CAP. Objective Vital signs: Temperature 96.5 F L 07/12/17 15:06 Pulse Rate 86 07/12/17 15:06 Respiratory Rate 18 07/12/17 15:21 Blood Pressure 119/65 07/12/17 15:06 Pulse Oximetry 93 07/12/17 15:21 Height/Weight/BMI: Height 1.7 m Weight 149.7 kg Body Mass Index 51.7 - Constitutional Present: no acute distress, well nourished, well developed - Routine HEENT Exam Eye: Present: EOMI ENT: Present: mucous membranes moist, dentition normal - Routine Respiratory Exam Present: CTA bilaterally (anterior), diminished air movement (bases). Absent: wheezes - Routine Cardiovascular Exam Present: RRR, S1, S2. Absent: murmur - Routine Abdominal Exam Present: soft, normoactive bowel sounds, non distended. Absent: tenderness - Routine Extremities Exam Present: full ROM, normal capillary refill - Routine Back/Spine/Pelvis Exam Back/Spine: Present: full ROM - Routine Skin Exam Present: intact, dry, warm - Routine Neurological Exam Present: alert, oriented X3, CN II-XII intact, moving all extremities - Routine Lymphatic Exam Lymphatic: Absent: adenopathy - Routine Psychiatric Exam Present: normal affect, cooperative Hospital Course This is a general summary of the patient's hospital course. For more details refer to the complete medical record. Hospital course: Impression Sepsis-Leukocytosis, bandemia, fever, tachypnea, pneumonia Community acquired pneumonia Respiratory failure with hypoxia requiring 4-5 liters Parainfluenza Hypernatremia- POA Subtherapeutic INR-chronic anticoagulation on warfarin Type II diabetes Hypertension morbid obesity- BMI 51 07/10/17 Admit inpatient status under the care of Dr. Brink for sepsis and community acquired pneumonia Continue with IV Rocephin and azithromycin antimicrobial coverage. Sputum and blood Cultures pending Continue with DuoNeb 4 times a day and Pulmicort twice a day Will add Mucinex twice a day Obtain an INR now, patient had subtherapeutic INR on admission, 1.5. 2. Will bridge with Lovenox until therapeutic. Pharmacy consult placed Reported history of diabetes, however, does not appear the patient is on any current medication. We will obtain a hemoglobin A1c and monitor Accu-Cheks. 1/2 NS at 100ml/hr for gentle hydration given hypernatremia Respiratory precautions given parainfluenza SCDs to bilateral lower extremity for DVT prophylaxis Repeat CBC and BMP tomorrow morning to follow blood counts, renal function and electrolytes Will discuss further orders and plan of care with attending, Dr. Brink At time of discharge medical care will return to primary care provider, Dr Harding at [facility] 07/11/17 Working on weaning down oxygen Continue with Rocephin and azithromycin for pulmonary coverage. Blood cultures negative after 1 day. Continue with scheduled DuoNeb breathing treatment Prednisone for pulmonary inflammation. Will place consult to PT and OT for tomorrow to evaluate patient Accu-Cheks remained normal, will discontinue scheduled Accu-Cheks to when necessary Lovenox subcutaneous daily for DVT prophylaxis- subtherapeutic INR Will recheck CBC and BMP tomorrow morning. Follow leukocytosis, electrolytes and renal function 07/12- Discharge Messi is seen and examined to discharge. He has been able to wean down to room air at rest. However, with sleeping did require 2 liters. Home oxygen has been arranged with case management. Patient is planned to be discharged home today. He will continue with 2 days of azithromycin. He will also finish out oral prednisone 20 milligrams daily for 4 days. He is encouraged to utilize DuoNeb breathing treatments every 6 hours as needed. Otherwise, will continue on normal home medications. He is instructed to follow-up with his primary care provider at the [facility], Dr. Noel Harding. His discharge in stable condition The patient might benefit from a formal sleep study evaluation to rule out sleep apnea 07/12/2017-4:50 PM-I examined the patient independently. I reviewed this chart, the patient history, and the CAR HOPPER's/PA's documented findings as above. We discussed and formulated the assessment and plan as above with the additions below.-Dr. Brink The patient was seen earlier today in his room. He is feeling much better and feels ready to go home. He is on room air during the day. Ambulatory oxygen level was in the 90s on room air. He does need 2 L of oxygen at night. He is eating and drinking well. On exam he is alert and in no acute distress. Chest is clear to auscultation. Cardiovascular reveals a regular rate and rhythm. Abdomen is soft and nontender. Extremities are free of edema. Impression and plan Community acquired pneumonia the patient received 3 days of IV Rocephin and azithromycin. He will be discharged on 2 more days of azithromycin, DuoNeb breathing treatments, and a short steroid taper. Parainfluenza virus 3 respiratory infection Acute hypoxic respiratory failure-resolved The patient does need 2 L of oxygen at night. Cannot rule out sleep apnea. The patient appears stable for dismissal to home with plans for follow-up with his primary care physician next week Time spent with patient: discharge greater than 30 minutes Resuscitation Status: Full Code Discharge Plan - Discharge Disposition Discharge Date: 07/12/17 Disposition: 01 Discharged Home, Self-Care *Condition: Improved Reason For Visit (Visit label in EMR): pneumonia - Discharge Medications *Discharge Medications: New Azithromycin [Zithromax] 500 mg PO DAILY #2 tab PredniSONE [Deltasone 20 mg] 20 mg PO WB #4 tab Albuterol/Ipratropium [Duoneb] 1 unit AEROSOL Q6H #1 box Continue Aspirin [Aspirin EC] 81 mg PO HS #0 Calcium Carbonate 1 tab PO BID #0 Multivitamin [One Daily Multivitamin] 1 each PO BID #0 Gabapentin [Neurontin] 600 mg PO HS Albuterol Sulfate [Proair Hfa] 2 puff INH TID PRN PRN Reason: Shortness Of Air/Wheezing Triamterene/Hydrochlorothiazid [Triamterene-Hctz 37.5-25 mg Cp] 1 cap PO DAILY Potassium 1 tab PO DAILY Acetaminophen [Tylenol] 2 tab PO TID Finasteride [Proscar] 5 mg PO DAILY Metoprolol Tartrate 100 mg PO BID Simvastatin [Zocor] 40 mg PO HS Warfarin Sodium [Coumadin] 5 mg PO QMWF Warfarin [Coumadin] 2.5 tab PO [id number] Omeprazole [Prilosec] 1 cap PO ACBID - Discharge Packet/Instructions *Diet: Regular *Activity: Activity as tolerated *Pain Management/Treatment: Tylenol as needed for pain *Wound Care: N/A Additional Instructions: Take Azithromycin daily for 2 more days. Prednisone 20 mg daily until gone. Use oxygen at night as instructed. Use Duoneb every 6 hours as needed *Expected Signs/Symptoms: Continued improvement in cough and breathing *Notify Physician if: Fever, chills, worsening shortness of breath, vomiting, or other concerning symptoms *During Business Hours Contact: Primary care provider at the [facility] *After Business Hours Contact: Page on-call provider at [facility] *Pending Lab/Results: No Pending Lab - Referrals/Follow Up *Referrals/Follow Up: Noel Harding MD [Primary Care Provider] - (Please schedule follow-up appointment for one week) - Patient Handouts Patient Handouts: Sepsis (GEN), Pneumonia (GEN) - Dismissal Complete Discharge Instructions are:: Complete Physician Narrative - Narrative Attestation Narrative: Date: 07/12/17 Time: 2496
[2017-07-12] MEDS ORDERED: CEFTRIAXONE 1 G in NS 100 ML IV SCH (16:00)
== END 2017-07-12 18:18 | disposition home or self-care (01) | DRG 871 ==
LOC: ED 20:23 → MED 23:09
PROVIDERS: ADMIT Emergency Medicine; ATTEND Internal Medicine